=== PATIENT | male | born 1985 | race American Indian/Alaskan Native ===

== ENCOUNTER 2021-02-04 15:38 | Inpatient (IN) | payer OTHER ==
[2021-02-04 16:11] LABS: Basophils % (Auto) 0.5 % (0.0-1.8); Eosinophils # (Auto) 0.1 K/mm3 (0.0-0.4); Eosinophils % (Auto) 0.7 % (0.0-4.3); Hematocrit 45.3 % (35.5-45.6); Hemoglobin 15.2 gm/dl (11.8-15.2); Lymphocytes # (Auto) 1.6 K/mm3 (1.2-5.4); Lymphocytes % (Auto) 15.4 % (13.4-35.0); Mean Corpuscular HGB Conc 34 % (32-34); Mean Corpuscular Volume 96 fl (84-94); Monocytes # (Auto) 0.4 K/mm3 (0.0-0.8); Monocytes % (Auto) 3.8 % (0.0-7.3); Platelet Count 289 K/mm3 (140-440); Red Blood Count 4.72 M/mm3 (3.65-5.03); Red Cell Distribution Width 13.5 % (13.2-15.2)
[2021-02-04] MEDS: NALOXONE 0.4 MG/1 ML INJ IV PRN ×3 (16:11→17:01)
--- NOTE | 2021-02-04 16:13 | XRay Report ---
CHEST 1 VIEW 02/04/2021 3:45 PM INDICATION / CLINICAL INFORMATION: overdose, hypoxia. COMPARISON: None available. FINDINGS: SUPPORT DEVICES: None. HEART / MEDIASTINUM: No significant abnormality. LUNGS / PLEURA: There is mild asymmetric density of the left lung compared to the right. No focal ezio g consolidation. No pneumothorax. ADDITIONAL FINDINGS: No significant additional findings. IMPRESSION: 1. Mild asymmetric density of the left lung compared to the right can be seen with mucus plugging. No pneumothorax. Signer Name: Teto Packer MD Signed: 02/04/2021 4:09 PM Workstation Name: [id number]
[2021-02-04] MEDS ORDERED: SODIUM CHLORIDE 0.9% 1000 ML 1,000 ML IV ONE (17:10)
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
[2021-02-04] MEDS ORDERED: NALOXONE 2 MG/2 ML 2 MG in SODIUM CHLORIDE 0.9% 500 ML 500 ML IV ONE (20:00)
--- NOTE | 2021-02-04 21:02 | Cat Scan Report ---
CTA CHEST WITH IV CONTRAST INDICATION: accidental drug overdose, hypoxia. Chest pain TECHNIQUE: Axial CT images were obtained through the chest after injection of 100 mL IV contrast. 3 plane MIP re constructions were produced. All CT scans at this location are performed using CT dose reduction for ALARA by means of automated exposure control. COMPARISON: None available. FINDINGS: PULMONARY ARTERIES: No pulmonary emboli. AORTA AND ARTERIES: No acute abnormality. MEDIASTINUM: Mild cardiac enlargement LUNGS: Severe mixed groundglass and airspace disease within the left upper lobe as well as the left lower lobe ADDITIONAL FINDINGS: None. UPPER ABDOMEN: No acute findings. BONES: No significant osseous abnormality. IMPRESSION: 1. No CT evidence for pulmonary embolism. 2. Severe aspiration pneumonitis/pneumonia identified primarily within the left upper lobe and left l ower lobe but there is also scatter pneumonitis within the right upper lobe Signer Name: Dustin Aleman MD Signed: 02/04/2021 8:58 PM Workstation Name: [id number]
[2021-02-04] MEDS ORDERED: PIPERACILLIN/TAZOBACTAM 3.375 3.375 GM/50 ML BAG IV ONE (21:36)
[2021-02-04 23:18] LABS: Bilirubin,Urine NEG (Negative); Blood,Urine NEG (Negative); Color,Urine Yellow (Yellow); Mucus,Urine 2+ /HPF; Urobilinogen,Urine < 2.0 mg/dL (<2.0)
[2021-02-04] MEDS ORDERED: ACETAMINOPHEN 325 MG TAB PO PRN (23:20)
[2021-02-04] MEDS ORDERED: MORPHINE 4 MG/1 ML INJ IV PRN (23:20)
[2021-02-04] MEDS ORDERED: MORPHINE 2 MG/1 ML INJ IV PRN (23:20)
[2021-02-04] MEDS ORDERED: MAGNESIUM HYDROXIDE (MOM) ORAL LIQD UDC PO PRN (23:20)
[2021-02-04 23:28] LABS: Amphetamine Screen,Urine PRESUMPTIVE NEGATIVE; Benzodiazepines Screen,Urine PRESUMPTIVE NEGATIVE; Cannabinoid Screen,Urine PRESUMPTIVE POSITIVE; Cocaine Screen,Urine PRESUMPTIVE POSITIVE; Methadone Screen,Urine PRESUMPTIVE NEGATIVE; Opiate Screen,Urine PRESUMPTIVE NEGATIVE
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
[2021-02-05 04:19] LABS: Basophils % (Auto) 0.2 % (0.0-1.8); Eosinophils # (Auto) 0.1 K/mm3 (0.0-0.4); Eosinophils % (Auto) 0.7 % (0.0-4.3); Hematocrit 42.5 % (35.5-45.6); Hemoglobin 14.5 gm/dl (11.8-15.2); Lymphocytes # (Auto) 2.6 K/mm3 (1.2-5.4); Lymphocytes % (Auto) 24.6 % (13.4-35.0); Mean Corpuscular HGB Conc 34 % (32-34); Mean Corpuscular Volume 96 fl (84-94); Monocytes % (Auto) 9.5 % (0.0-7.3); Platelet Count 237 K/mm3 (140-440); Red Blood Count 4.46 M/mm3 (3.65-5.03); Red Cell Distribution Width 13.5 % (13.2-15.2)
[2021-02-05 04:27] LABS: INR 0.96 (0.87-1.13)
[2021-02-05 04:35] LABS: BUN/Creatinine Ratio 10; Blood Urea Nitrogen 10 mg/dL (9-20); Hemolysis Index 3
[2021-02-05] MEDS: SODIUM CHLORIDE 0.9% 1000 ML 1,000 ML IV SCH (04:49)
[2021-02-05] MEDS: PIPERACIL/TAZOBACTA 4.5/NS 100 4.5 GM/100 ML VIAL IV SCH ×3 (06:53→21:45)
--- NOTE | 2021-02-05 11:33 | Progress Note ---
Assessment and Plan Assessment and plan: 35-year-old male with no significant past medical history brought into the emergency room on 02/04 having been found unresponsive at the parking lot. Patient was said to have been altered with decreased respiration and hypoxia with O2 saturation in the 60s on room air. He was said to be unresponsive to painful stimuli. He required bag assisted oxygen ventilation. Accu-Chek at that time was said to be about 200. Was given some Narcan 0.4 mg with some improvement in his respiratory rate. He was said to have had more of IV Narcan and became more responsive. Upon further evaluation in the emergency room, patient states he could not recall what happened prior to arrival in the emergency room. Work-up in the emergency room reveals positive cocaine and marijuana in the toxicology screen. CT angiogram of the chest shows severe aspiration pneumonitis/pneumonia primarily within the left upper lobe and left lower lobe. Acute hypoxic respiratory failure Aspiration pneumonia Opioid overdose. Patient counseled on quitting illicit drug use. DVT prophylaxis 02/05/2021. Continue IV antibiotics. Await pulmonary consultation. Consult mental health for further evaluation. History Interval history: No new issues overnight. Hospitalist Physical - Constitutional Vitals: Temp Pulse Resp BP Pulse Ox 98.2 F 98 H 12 138/81 98 02/04/21 19:40 02/05/21 10:16 02/05/21 10:16 02/05/21 10:16 02/05/21 10:00 General appearance: Present: no acute distress, well-nourished - EENT Eyes: Present: PERRL, EOM intact ENT: hearing intact, clear oral mucosa, dentition normal - Neck Neck: Present: supple, normal ROM - Respiratory Respiratory effort: normal Respiratory: bilateral: CTA - Cardiovascular Rhythm: regular Heart Sounds: Present: S1 & S2. Absent: gallop, rub - Extremities Extremities: no ischemia, No edema, Full ROM - Abdominal General gastrointestinal: soft, non-tender, non-distended, normal bowel sounds - Integumentary Integumentary: Present: clear, warm, dry - Neurologic Neurologic: CNII-XII intact, moves all extremities Results - Labs CBC & Chem 7: 02/05/21 03:37 02/05/21 03:37 Labs: Laboratory Last Values WBC 10.7 K/mm3 (4.5-11.0) 02/05/21 03:37 RBC 4.46 M/mm3 (3.65-5.03) 02/05/21 03:37 Hgb 14.5 gm/dl (11.8-15.2) 02/05/21 03:37 Hct 42.5 % (35.5-45.6) 02/05/21 03:37 MCV 96 fl (84-94) H 02/05/21 03:37 MCH 33 pg (28-32) H 02/05/21 03:37 MCHC 34 % (32-34) 02/05/21 03:37 RDW 13.5 % (13.2-15.2) 02/05/21 03:37 Plt Count 237 K/mm3 (140-440) 02/05/21 03:37 Lymph % (Auto) 24.6 % (13.4-35.0) 02/05/21 03:37 Wallace % (Auto) 9.5 % (0.0-7.3) H 02/05/21 03:37 Eos % (Auto) 0.7 % (0.0-4.3) 02/05/21 03:37 Baso % (Auto) 0.2 % (0.0-1.8) 02/05/21 03:37 Lymph # (Auto) 2.6 K/mm3 (1.2-5.4) 02/05/21 03:37 Wallace # (Auto) 1.0 K/mm3 (0.0-0.8) H 02/05/21 03:37 Eos # (Auto) 0.1 K/mm3 (0.0-0.4) 02/05/21 03:37 Baso # (Auto) 0.0 K/mm3 (0.0-0.1) 02/05/21 03:37 Seg Neutrophils % 65.0 % (40.0-70.0) 02/05/21 03:37 Seg Neutrophils # 7.0 K/mm3 (1.8-7.7) 02/05/21 03:37 PT 13.4 Sec. (12.2-14.9) 02/05/21 03:37 INR 0.96 (0.87-1.13) 02/05/21 03:37 Sodium 140 mmol/L (137-145) 02/05/21 03:37 Potassium 4.5 mmol/L (3.6-5.0) 02/05/21 03:37 Chloride 104.8 mmol/L (98-107) 02/05/21 03:37 Carbon Dioxide 28 mmol/L (22-30) D 02/05/21 03:37 Anion Gap 12 mmol/L 02/05/21 03:37 BUN 10 mg/dL (9-20) 02/05/21 03:37 Creatinine 1.0 mg/dL (0.8-1.3) 02/05/21 03:37 Estimated GFR > 60 ml/min 02/05/21 03:37 BUN/Creatinine Ratio 10 % 02/05/21 03:37 Glucose 84 mg/dL (75-100) 02/05/21 03:37 Calcium 9.0 mg/dL (8.4-10.2) 02/05/21 03:37 Total Creatine Kinase 137 units/L (55-170) 02/04/21 15:51 Urine Color Yellow (Yellow) 02/04/21 Unknown Urine Turbidity Clear (Clear) 02/04/21 Unknown Urine pH 5.0 (5.0-7.0) 02/04/21 Unknown Ur Specific [place] 1.032 (1.003-1.030) H 02/04/21 Unknown Urine Protein 30 mg/dl mg/dL (Negative) 02/04/21 Unknown Urine Glucose (UA) 50 mg/dL (Negative) 02/04/21 Unknown Urine Ketones Neg mg/dL (Negative) 02/04/21 Unknown Urine Blood Neg (Negative) 02/04/21 Unknown Urine Nitrite Neg (Negative) 02/04/21 Unknown Urine Bilirubin Neg (Negative) 02/04/21 Unknown Urine Urobilinogen < 2.0 mg/dL (<2.0) 02/04/21 Unknown Ur Leukocyte Esterase Neg (Negative) 02/04/21 Unknown Urine WBC (Auto) 8.0 /HPF (0.0-6.0) H 02/04/21 Unknown Urine RBC (Auto) 3.0 /HPF (0.0-6.0) 02/04/21 Unknown Urine Mucus 2+ /HPF 02/04/21 Unknown Urine Yeast (Budding) Few /HPF 02/04/21 Unknown Salicylates < 0.3 mg/dL (2.8-20.0) L 02/04/21 15:51 Urine Opiates Screen Presumptive negative 02/04/21 Unknown Urine Methadone Screen Presumptive negative 02/04/21 Unknown Acetaminophen 5.0 ug/mL (10.0-30.0) L 02/04/21 15:51 Ur Barbiturates Screen Presumptive negative 02/04/21 Unknown Ur Phencyclidine Scrn Presumptive negative 02/04/21 Unknown Ur Amphetamines Screen Presumptive negative 02/04/21 Unknown U Benzodiazepines Scrn Presumptive negative 02/04/21 Unknown Urine Cocaine Screen Presumptive positive 02/04/21 Unknown U Marijuana (THC) Screen Presumptive positive 02/04/21 Unknown Drugs of Abuse Note Disclamer 02/04/21 Unknown Plasma/Serum Alcohol < 0.01 % (0-0.07) 02/04/21 15:51 Active Medications - Current Medications Current Medications: Generic Name Dose Route Start Last Admin Trade Name Freq PRN Reason Stop Dose Admin Acetaminophen 650 mg 02/04/21 23:20 Acetaminophen 325 Mg Tab PO Q6H PRN Pain MILD(1-3)/Fever >100.5/MCMANUS Enoxaparin Sodium 40 mg 02/05/21 22:00 Enoxaparin 40 Mg/0.4 Ml Inj SUB-Q QDAY@2200 GLORIA Protocol Sodium Chloride 1,000 mls @ 125 mls/hr 02/04/21 23:30 02/05/21 04:49 Nacl 0.9% 1000 Ml IV 125 mls/hr DIRECT GLORIA Administration Piperacillin Sod/Tazobactam Sod 4.5 gm in 100 mls @ 200 mls/hr 02/05/21 06:00 02/05/21 06:53 Zosyn/Ns 4.5gm/100ml IV 200 mls/hr Q8H GLORIA Administration Protocol Magnesium Hydroxide 30 ml 02/04/21 23:20 Magnesium Hydroxide (Mom) Oral Liqd Udc PO Q4H PRN Constipation Morphine Sulfate 2 mg 02/04/21 23:20 Morphine 2 Mg/1 Ml Inj IV Q4H PRN Pain, Moderate (4-6) Morphine Sulfate 4 mg 02/04/21 23:20 Morphine 4 Mg/1 Ml Inj IV Q4H PRN Pain , Severe (7-10) Naloxone HCl 0.1 mg 02/04/21 15:46 02/04/21 17:01 Naloxone 0.4 Mg/1 Ml Inj IV 0.1 mg Q2MIN PRN Administration Res Rate </= 8 or 02 SAT < 92% Sodium Chloride 10 ml 02/05/21 10:00 02/05/21 09:30 Sodium Chloride 0.9% 10 Ml Flush Syringe IV 10 ml BID GLORIA Administration Sodium Chloride 10 ml 02/04/21 23:20 Sodium Chloride 0.9% 10 Ml Flush Syringe IV PRN PRN LINE FLUSH Nutrition/Malnutrition Assess - Dietary Evaluation Nutrition/Malnutrition Findings: Nutrition Notes Start: 02/05/21 10:39 Freq: Status: Active Protocol: Document 02/05/21 10:39 GB (Rec: 02/05/21 11:00 GB [id number]) Nutrition Notes Need for Assessment generated from: MD Order Initial or Follow up Assessment Other Pertinent Diagnosis AMS, Asthma, illicit drug use, ETOH abuse Current Diet Regular Labs/Tests 02/05: unremarkable Pertinent Medications reviewed Height 5 ft 8 in Weight 68.039 kg [place] Body Weight (kg) 70.00 BMI 22.8 Weight change and time frame No reported weight changes Weight Status Appropriate Subjective/Other Information Per chart review, no health indicators for nutrition therapy education needs. Pt Alert, on regular diet, and passed nursing swallow evaluation. Percent of energy/protein needs met: 75% PO intake of meals meets 75% or greater of estimated energy needs. Burn Absent Trauma Absent GI Symptoms None Food Allergy No Current % PO Good (75-100%) #1 Nutrition Diagnosis No nutrition diagnosis at this time Comments: consult for nutrition education. Etiology MD consult for nutrition education As Evidenced by Signs and Symptoms per chart no health indicators for nutrition therapy. Pt is not a candidate at this time for nutrition education. RD to remain available for future consults if needed. Diagnosis Progress(for reassessment Resolved documentation) Is patient on ventilator? No Is Patient Ambulatory and/or Out of Bed Yes REE-([place]. Jeor-ambulatory/OOB) [ 7034.857 [id number]] Kcal/Kg value to use for calculation 25 Approximate Energy Requirements Using 1701 kcal/Kg Calculation Used for Recommendations Kcal/kg Additional Notes Protein: 0.8-1g/kg @68k- 68g Fluids: 1 ml/kcal or per MD Nutrition Intervention Change Diet Order: continue Nutrition Support: n/a Add Supplement/Snack (indicate name/kcal n/a /protein ) Education Handouts Provided Recommend hospital to include general nutrition information wtih discharge papers. Goal #1 PO intake of meals to be 75% or greater TID daily for LOS Anticipated Discharge Needs: Include hospital standard nutrition handout with discharge papers. Revisit per MD consult or patient Sign Off request:
--- NOTE | 2021-02-05 14:15 | Event Note ---
Date: 02/05/21 ICU evaluation requested for suspected Drug OD patient does not meet ICU criteria at time of my evaluation .... please re-consult as needed
[2021-02-05] MEDS ORDERED: ENOXAPARIN 40 MG/0.4 ML INJ SUB-Q SCH (22:00)
[2021-02-06] MEDS: PIPERACIL/TAZOBACTA 4.5/NS 100 4.5 GM/100 ML VIAL IV SCH (06:50)
[2021-02-06] MEDS: SODIUM CHLORIDE 0.9% 1000 ML 1,000 ML IV SCH (06:54)
--- NOTE | 2021-02-06 07:59 | Discharge Summary ---
Providers - Providers Date of Admission: 02/04/21 21:37 Date of discharge: 02/06/21 Attending physician: MEDINA QUINONEZ 02/04/21 23:20 Consult to Physician [CONS] Routine Comment: Consulting Provider: WILY LAMB Physician Instructions: Reason For Exam: ASPIRATION PNEUMONIA, DRUG OVERDOSE 02/04/21 23:24 Consult to Dietitian/Nutrition [CONS] Routine Physician Instructions: Reason For Exam: Reason for Consult: Diet education 02/05/21 11:29 psychiatry consult [Consult to Mental Health] [CONS] Routine Reason For Exam: drug overdose Primary care physician: ECHO TECHNICIAN Hospitalization Reason for admission: Aspiration pneumonitis Condition: Fair Hospital course: 35-year-old male with no significant past medical history brought into the emergency room today having been found unresponsive at the parking lot. Patient was said to have been altered with decreased respiration and hypoxia with O2 saturation in the 60s on room air. He was said to be unresponsive to painful stimuli. He required bag assisted oxygen ventilation. Accu-Chek at that time was said to be about 200. Was given some Narcan 0.4 mg with some improvement in his respiratory rate. He was said to have had more of IV Narcan and became more responsive. Upon further evaluation in the emergency room, patient states he could not recall what happened prior to arrival in the emergency room. Work-up in the emergency room reveals positive cocaine and marijuana in the toxicology screen. CT angiogram of the chest shows severe aspiration pneumonitis/pneumonia primarily within the left upper lobe and left lower lobe. The patient was admitted with diagnosis of acute hypoxic respiratory failure, aspiration pneumonitis and unintentional poisoning by opioid. The patient returned back to baseline with mental status after Narcan was given. Patient received IV antibiotics for the aspiration pneumonitis and was noted to be afebrile and have WBC stable. The patient is to have follow-up mental health evaluation prior to discharge. Dedicated discharge time 32 minutes. Disposition: 01 HOME / SELF CARE / HOMELESS Final Discharge Diagnosis (Prints w/discharge instructions): Aspiration pneumonitis, unintentional overdose by opioid, acute hypoxic respiratory failure Core Measure Documentation - Palliative Care Palliative Care/ Comfort Measures: Not Applicable - Core Measures Any of the following diagnoses?: none Exam - Constitutional Vitals: Temp Pulse Resp BP Pulse Ox 98.7 F 65 19 127/78 99 02/05/21 19:45 02/06/21 06:46 02/06/21 06:46 02/06/21 06:46 02/06/21 06:46 General appearance: Present: no acute distress, well-nourished - EENT Eyes: Present: PERRL ENT: hearing intact, clear oral mucosa - Neck Neck: Present: supple, normal ROM - Respiratory Respiratory effort: normal Respiratory: bilateral: CTA - Cardiovascular Heart Sounds: Present: S1 & S2. Absent: rub, click - Extremities Extremities: pulses symmetrical, No edema Peripheral Pulses: within normal limits - Abdominal General gastrointestinal: Present: soft, non-tender, non-distended, normal bowel sounds Male genitourinary: Present: normal - Integumentary Integumentary: Present: clear, warm, dry - Musculoskeletal Musculoskeletal: gait normal, strength equal bilaterally - Psychiatric Psychiatric: appropriate mood/affect, intact judgment & insight - Neurologic Neurologic: CNII-XII intact, moves all extremities Plan Activity: advance as tolerated Weight Bearing Status: Weight Bear as Tolerated Diet: regular Follow up with: PRIMARY CARE, [Primary Care Provider] - 3-5 Days Prescriptions: Amoxicillin/Potassium Clav [Augmentin 875-125 Tablet] 1 each PO BID #14 tablet
--- NOTE | 2021-02-06 11:35 | Consultation ---
History of Present Illness - Reason for Consult Consult date: 02/06/21 Reason for consult: od - History of Present Psychiatric Illness Per ER Note: 35-year-old male with no significant past medical history brought into the emergency room today having been found unresponsive at the parking lot. Patient was said to have been altered with decreased respiration and hypoxia with O2 saturation in the 60s on room air. He was said to be unresponsive to painful stimuli. He required bag assisted oxygen ventilation. Accu-Chek at that time was said to be about 200. Was given some Narcan 0.4 mg with some improvement in his respiratory rate. He was said to have had more of IV Narcan and became more responsive. Upon further evaluation in the emergency room, patient states he could not recall what happened prior to arrival in the emergency room. Work-up in the emergency room reveals positive cocaine and marijuana in the toxicology screen. CT angiogram of the chest shows severe aspiration pneumonitis/pneumonia primarily within the left upper lobe and left lower lobe. Breezy Merino is a 35y/o male patient I evaluated today. He is a/o x 3. He is calm, cooperative and pleasant. The patient is smiling. He says he was drinking, had a headache and took some opiates a friend had. He denies trying to inflict harm on himself in any way. He says "I was scared at the idea. They told me I almost ." The patient says "I won't ever do that again." He says he has two daughters ages 13 and 14. He says "I have too much to live for. I love my girls." He says "I've never even had a thought of suicide." He denies hallucinations of any kind. He also denies having any psych history or being on any psych meds. PAST PSYCHIATRIC HISTORY Diagnoses: Denies Suicide attempts or Self-harm behavior: Denies Prior psychiatric hospitalizations: Denies Substance Abuse history: "weed" Previous psychiatric medications tried: Denies Outpatient treatment: Denies PAST MEDICAL HISTORY: None reported Family Psychiatric History: None reported or documented SOCIAL HISTORY Marital Status: Living Arrangements: With family Employment Status: Employed Access to guns/weapons: None reported Education: Some college History of Abuse: None reported Legal History: Denies REVIEW OF SYSTEMS Constitutional: Negative for weight loss ENT: Negative for stridor Respiratory: Negative for cough or hemoptysis All other systems reviewed and are negative MENTAL STATUS EXAMINATION General Appearance and Behavior: Age appropriate, good hygiene, wearing appropriate clothes, good eye contact, pleasant Cooperation: Participating/engaged Psychomotor Behavior: Psychomotor normal Mood: good Affect and affective range: Congruent with mood, smiling Thought Process: Goal oriented Thought Content: None Speech: Normal rate, volume and rhythm Intellectual Functioning: Average Suicidal Ideation: Denies Homicidal Ideation: Denies Hallucinations: Denies Delusions: None elicited Impulse Control: Attentive Insight and Judgment: Limited insight and judgment Memory: Normal Attention: Normal Orientation: Alert, oriented x 3 Assessment and Plan (1) Accidental Overdose Current Visit: Yes Status: Acute Treatment Plan No scripts given Sitter: per primary Medical: per primary Disposition: Do not recommend acute psychiatric inpatient treatment The patient should abstain from taking meds not prescribed to him Will sign off. Thanks Case staffed with Dr. Mondragon. Medications and Allergies Allergies Allergy/AdvReac Type Severity Reaction Status Date / Time No Known Allergies Allergy Verified 02/04/21 15:51 Home Medications Medication Instructions Recorded Confirmed Last Taken Type Amoxicillin/Potassium Clav 1 each PO BID #14 tablet 02/06/21 Unknown Rx [Augmentin 875-125 Tablet] Active Meds: Active Medications Acetaminophen (Acetaminophen 325 Mg Tab) 650 mg PO Q6H PRN PRN Reason: Pain MILD(1-3)/Fever >100.5/MCMANUS Enoxaparin Sodium (Enoxaparin 40 Mg/0.4 Ml Inj) 40 mg SUB-Q QDAY@2200 GLORIA; Protocol Last Admin: 02/05/21 21:45 Dose: 40 mg Documented by: Sodium Chloride (Nacl 0.9% 1000 Ml) 1,000 mls @ 125 mls/hr IV DIRECT GLORIA Last Admin: 02/06/21 06:54 Dose: 125 mls/hr Documented by: Piperacillin Sod/Tazobactam Sod (Zosyn/Ns 4.5gm/100ml) 4.5 gm in 100 mls @ 200 mls/hr IV Q8H GLORIA; Protocol Last Admin: 02/06/21 06:50 Dose: 200 mls/hr Documented by: Magnesium Hydroxide (Magnesium Hydroxide (Mom) Oral Liqd Udc) 30 ml PO Q4H PRN PRN Reason: Constipation Morphine Sulfate (Morphine 2 Mg/1 Ml Inj) 2 mg IV Q4H PRN PRN Reason: Pain, Moderate (4-6) Morphine Sulfate (Morphine 4 Mg/1 Ml Inj) 4 mg IV Q4H PRN PRN Reason: Pain , Severe (7-10) Naloxone HCl (Naloxone 0.4 Mg/1 Ml Inj) 0.1 mg IV Q2MIN PRN PRN Reason: Res Rate </= 8 or 02 SAT < 92% Last Admin: 02/04/21 17:01 Dose: 0.1 mg Documented by: Sodium Chloride (Sodium Chloride 0.9% 10 Ml Flush Syringe) 10 ml IV BID GLORIA Last Admin: 02/05/21 21:45 Dose: 10 ml Documented by: Sodium Chloride (Sodium Chloride 0.9% 10 Ml Flush Syringe) 10 ml IV PRN PRN PRN Reason: LINE FLUSH Mental Status Exam - Vital signs Last Vital Signs Temp 98.7 F 02/05/21 19:45 Pulse 65 02/06/21 06:46 Resp 19 02/06/21 06:46 BP 127/78 02/06/21 06:46 Pulse Ox 99 02/06/21 06:46 Results Result Diagrams: 02/05/21 03:37 02/05/21 03:37 All other labs normal.
[2021-02-06 11:47] VITALS: BP 122/67
--- NOTE | 2021-02-11 14:03 | Electrocardiograph Report ---
Test Date: 2021-02-04 Test Time: 16:19:09 Pat Name: EDMUND YOO Department: Room: [facility] Gender: M Width Stripper: QUINN : 1985 Requested By: NU MATHEWS Order Number: [id number] Reading MD: Leona Stratton Measurements Intervals [place] Rate: 114 P: 61 WI: 158 QRS: 83 QRSD: 99 T: 35 QT: 337 QTc: 464 Interpretive Statements Sinus tachycardia LAE, consider biatrial enlargement No previous ECG available for comparison Electronically Signed On 02-11-2021 14:02:23 EDT by Leona Stratton
== END 2021-02-06 11:49 | disposition home or self-care (01) | DRG 917 ==
LOC: ED 15:38 → CC1 21:37 → 3A 02-06 08:03
PROVIDERS: ADMIT Internal Medicine Geriatric Medicine; ATTEND Hospitalist
DX: T40.2X1A Poisoning by other opioids, accidental (unintentional), initial encounter (principal); J69.0 Pneumonitis due to inhalation of food and vomit; J96.01 Acute respiratory failure with hypoxia; F17.200 Nicotine dependence, unspecified, uncomplicated; Z90.49 Acquired absence of other specified parts of digestive tract; J45.909 Unspecified asthma, uncomplicated; Y92.89 Other specified places as the place of occurrence of the external cause
CPT/HCPCS: 36415; 71045; 71275; 80048; 80307; 80320; 81001; 82550; 85025; 85610; 93005; G0378; G0480; J1650; J2310; J2543; J7030; J7040; Q9967